=== PATIENT | female | born 1965 | race Caucasian/White ===

== ENCOUNTER 2017-12-21 14:26 | Emergency (ER) | payer OTHER ==
[~2017-12-21] VITALS: Ht 162.5 cm; Wt 93.0 kg
[2017-12-21] MEDS ORDERED: ATARAX,VISTARIL50 MG PO (15:28)
== END 2017-12-21 16:10 | disposition home or self-care (01) ==
LOC: ED 14:26
DX: F41.9 Anxiety disorder, unspecified (principal); F17.200 Nicotine dependence, unspecified, uncomplicated; Z88.2 Allergy status to sulfonamides